=== PATIENT | male | born 1940 | race Caucasian/White ===

== ENCOUNTER → 2018-09-02 | Day surgery (SDC) | payer MEDICARE, BC ==
[~2018-09-02] VITALS: Ht 172.7 cm; Wt 86.2 kg
[~2018-09-02] MED LIST: LIDOCAINE JELLY 2% 6 ML SYRINGE ONE; MEPERIDINE (DEMEROL) INJ 50 MG/ML IVP ONE; MIDAZOLAM 2 MG/2 ML (VERSED) VIAL ONE; ONDANSETRON 4 MG/2 ML (SDV) Z0FRAN IVP PRN; PANT40TA2 PO; PANTOPRAZOLE 40 MG (PROTONIX) VIAL IV ONE; PHENYLEPHRINE 100 MCG/ML 10 ML (ANESTHESIA) SYR ONE; SEVOFLURANE (ULTANE) 15 ML INHAL SOLN ONE; SUCCINYLCHOLINE INJ 100 MG/5 ML SYR ONE; SUCR1TAB36 PO; fentaNYL INJECTION 100 MCG/2 ML AMP IVP ONE; morphine INJ 10 MG/ML 1ML (SYR OR VIAL) IVP ONE; proPOfol 200 MG/20 ML (DIPRIVAN) VIAL IV ONE
--- NOTE | 2018-09-02 14:19 | ED GI ---
General Chief Complaint: General Problems/Pain Stated Complaint: FOOD CAUGHT IN THROAT Source of Information: Patient Exam Limitations: No Limitations History of Present Illness Date Seen by Provider: Sep 02, 2018 Time Seen by Provider: 14:17 Initial Comments To ER per private vehicle with reports of food stuck in his throat. He was eating at [employer] here in [place], eating steak. [place] it get stuck in the lower esophagus. He is now unable to swallow his own secretions Timing/Duration: 1-2 Days Severity/Quality: Moderate Radiation: No Radiation Activities at Onset: None Associated Symptoms: Denies Symptoms Allergies and Home Medications Allergies Coded Allergies: No Known Drug Allergies (Unverified , 09/02/18) Home Medications Pantoprazole Sodium 40 Mg Tablet.dr, 40 MG PO DAILY Prescribed by: TOSHA FOX on 09/02/181612 Sucralfate 1 Gm Tablet, [address] in small amount of water and crush into a slurry, then take. Prescribed by: TOSHA FOX on 09/02/181612 Patient Home Medication List Home Medication List Reviewed: Yes Review of Systems Review of Systems Constitutional: see HPI EENTM: No Symptoms Reported Respiratory: No Symptoms Reported Cardiovascular: No Symptoms Reported Gastrointestinal: See HPI Genitourinary: No Symptoms Reported Musculoskeletal: no symptoms reported Skin: no symptoms reported Psychiatric/Neurological: No Symptoms Reported Endocrine: No Symptoms Reported Past Ummfovl-Shcqya-Tbpulx Hx Patient Social History Recent Foreign Travel: No Contact w/Someone Who Travel: No Physical Exam Vital Signs Vital Signs - First Documented 09/02/18 14:17 Temp 98.0 Pulse 98 Resp 16 B/P (MAP) 125/76 (92) Pulse Ox 93 O2 Delivery Room Air Capillary Refill : Height/Weight/BMI Height: '" Weight: lbs. oz. kg; BMI Method: General Appearance: WD/WN, no apparent distress HEENT: PERRL/EOMI, normal ENT inspection Neck: non-tender, full range of motion Respiratory: no respiratory distress, no accessory muscle use Gastrointestinal: normal bowel sounds, non tender, soft Extremities: normal range of motion, non-tender Neurologic/Psychiatric: alert, normal mood/affect, oriented x 3 Skin: normal color, warm/dry Exam Comments Unable to swallow his own secretions, spitting saliva into a bag. Called Dr. Fox, would like to have anesthesia and endoscopy nurse called in. Progress/Results/Core Measures Results/Orders My Orders Orders - KARLEY GORDON APRN Iv Heplock-Insert (Order) (09/02/18 14:19) Fentanyl Injection (Sublimaze Injection (09/02/18 14:30) Medications Given in ED Current Medications Medications Dose Ordered Sig/Brandt Route Start Time Stop Time Status Last Admin Dose Admin Fentanyl Citrate 50 mcg ONCE ONCE IVP 09/02/18 14:30 09/02/18 14:31 DC 09/02/18 14:26 50 MCG Vital Signs/I&O 09/02/18 14:17 Temp 98.0 Pulse 98 Resp 16 B/P (MAP) 125/76 (92) Pulse Ox 93 O2 Delivery Room Air Departure Impression Primary Impression: Food impaction of esophagus Qualified Codes: T18.128A - Food in esophagus causing other injury, initial encounter Disposition: HOME, SELF-CARE Condition: Stable Departure-Patient Inst. Decision time for Depature: 16:35 Referrals: TOSHA FOX DO NO,LOCAL PHYSICIAN (PCP) Primary Care Physician Patient Instructions: NO INSTRUCTIONS GIVEN Add. Discharge Instructions: follow-up with Dr. Fox in 2 weeks. Clear liquids only for 3 days All discharge instructions reviewed with patient and/or family. Voiced understanding. Scripts Sucralfate (Carafate) 1 Gm Tablet 1 GM PO QID, #[address] in small amount of water and crush into a slurry, then take. Prov: TOSHA FOX DO 09/02/18 Pantoprazole Sodium (Protonix) 40 Mg Tablet. 40 MG PO DAILY, #30 TAB 3 Refills Prov: TOSHA FOX DO 09/02/18 KARLEY GORDON APRN Sep 02, 2018 14:19
--- NOTE | 2018-09-02 14:30 | NUR ---
DR NIEVES IN TALKING TO PT.
--- NOTE | 2018-09-02 14:52 | NUR ---
BRONSON KAHN FROM OR HERE TO TAKE PT TO OR FOR EGD. PLANS ARE FOR PT TO COME BACK TO THE ER.
[2018-09-02] MEDS: LACTATED RINGERS 1,000 ML IV SCH ×2 (15:09→16:00)
--- NOTE | 2018-09-02 15:24 | Consultation ---
History of Present Illness History of Present Illness Patient Consulted On(mindy/time) 09/02/18 15:23 Date Seen by Provider: Sep 02, 2018 Time Seen by Provider: 14:47 History of Present Illness seen and evaluated in ed consult requested by rex mccarty for esophageal obstruction. Patient is a 78 year old male who was eating a steak about an hr ago and felt it get lodged in distal esophagus. Can't get it to go down. Can not swallow secretions having to spit in a bag. Small amount of blood mixed in with secretions . Has had issues with this before but has always gone down. Has never had an EGD to evaluate. Nothing making better, nothing making worse. Patient has no other complaints at this time. Not having any significant abdominal pain. Denies fever sweats chills shortness of breath or chest pain. Allergies and Home Medications Allergies Coded Allergies: No Known Drug Allergies (Unverified , 09/02/18) Home Medications Pantoprazole Sodium 40 Mg Tablet.dr, 40 MG PO DAILY Prescribed by: TOSHA NIEVES on 09/02/18 1613 Sucralfate 1 Gm Tablet, [address] in small amount of water and crush into a slurry, then take. Prescribed by: TOSHA NIEVES on 09/02/18 161 Patient Home Medication List Home Medication List Reviewed: Yes Past Qisphqk-Rkmzrr-Wvzxne Hx Patient Social History Alcohol Use: Denies Use Recreational Drug Use: No Smoking Status: Never a Smoker Recent Foreign Travel: No Contact w/Someone Who Travel: No Recent Infectious Disease Expo: No Recent Hopitalizations: No Surgeries History of Surgeries: Yes Surgeries: Eye Surgery, Orthopedic Respiratory History of Respiratory Disorde: No Cardiovascular History of Cardiac Disorders: No Neurological History of Neurological Disord: No Genitourinary History of Genitourinary Disor: No Gastrointestinal History of Gastrointestinal Di: No Musculoskeletal History of Musculoskeletal Dis: No Endocrine History of Endocrine Disorders: No HEENT History of HEENT Disorders: No Cancer History of Cancer: No Psychosocial History of Psychiatric Problem: No Integumentary History of Skin or Integumenta: No Family Medical History Significant Family History: No Pertinent Family Hx Review of Systems-General Constitutional: no symptoms reported EENTM: see HPI Respiratory: no symptoms reported Cardiovascular: no symptoms reported Gastrointestinal: see HPI Genitourinary: no symptoms reported Musculoskeletal: no symptoms reported Skin: no symptoms reported Psychiatric/Neurological: No Symptoms Reported Physical Exam-General Problems Physical Exam Vital Signs Vital Signs - First Documented 09/02/18 14:17 Temp 98.0 Pulse 98 Resp 16 B/P (MAP) 125/76 (92) Pulse Ox 93 O2 Delivery Room Air Capillary Refill : Less Than 3 Seconds General Appearance: no apparent distress HEENT: PERRL/EOMI, normal ENT inspection, other (sputum blood tinged) Neck: non-tender, full range of motion, supple, normal inspection Respiratory: chest non-tender, no respiratory distress, no accessory muscle use Cardiovascular: regular rate, rhythm Gastrointestinal: non tender, soft, no organomegaly Rectal: deferred Back: normal inspection, no CVA tenderness Extremities: non-tender, normal inspection Neurologic/Psychiatric: die assembler II-XII nml as tested, no motor/sensory deficits, alert, normal mood/affect, oriented x 3 Skin: normal color, warm/dry Lymphatic: no adenopathy Assessment/Plan Assessment/Plan Assessment/Plan esophageal obstruction food bolus discussed risks and benefits of egd he understands and wishes to proceed to OR for EGD TOSHA NIEVES DO Sep 02, 2018 15:24
--- NOTE | 2018-09-02 16:15 | Discharge Inst-Simple/Standard ---
Discharge Inst-Standard Discharge Medications New, Converted or Re-Newed RX: RX on Chart Patient Instructions/Follow Up Plan of Care/Instructions/FU: [address] Fox. Call to make an appointment [phone] Activity as Tolerated: Yes Discharge Diet: Liquid Diet (stay on clear liquid diet for 3 days. then eat soft food till follow up appointment (avoid meats or any foods difficult to swallow).) TOSHA FOX DO Sep 02, 2018 16:15
[2018-09-02 17:15] VITALS: BP 123/74
--- NOTE | 2018-09-02 17:15 | NUR ---
BACK FROM ENDO. PT ALERT ET STATES HE IS JUST A LITTLE SORE. WATER GIVEN AND ASKED TO TAKE SLOW SIPS.
--- NOTE | 2018-09-02 17:15 | Progress Note-Post Operative ---
Post-Operative Progess Note Surgeon (s)/Seaming Inspector (s) Surgeon TOSHA NIEVES DO Seaming Inspector: na Pre-Operative Diagnosis esophageal obstruction Post-Operative Diagnosis food bolus esophagus, linear esophageal ulceration, schatski's ring Procedure & Operative Findings Date of Procedure 09/02/18 Procedure Performed/Findings egd c removal esophageal food bolus Anesthesia Type gen Estimated Blood Loss Estimated blood loss (mL): scant Specimens/Packing Specimens Removed na TOSHA NIEVES DO Sep 02, 2018 17:15
[2018-09-02 17:52] VITALS: BP 114/72
--- NOTE | 2018-09-03 02:27 | OPERATIVE REPORT ---
DATE OF SERVICE: 09/02/2018 PREOPERATIVE DIAGNOSIS: Esophageal obstruction. POSTOPERATIVE DIAGNOSIS: Food bolus in the esophagus, linear esophageal ulceration, Schatzki's ring. PROCEDURE: EGD with removal of esophageal food bolus. SURGEON: Tosha Fox DO. ANESTHESIA: General. ESTIMATED BLOOD LOSS: Scant. COMPLICATIONS: None. INDICATIONS: The patient is a 78-year-old male who was eating steak dinner about an hour prior to emergency room. He is unable to swallow any of his secretions and having to spit them out. He got a little bit of blood tinged color to the secretions and he has some discomfort and stuck in the lower part of the esophagus. The patient understood risks and benefits of procedure and wished to proceed with procedure. Consent was signed in the chart. PROCEDURE: The patient was taken to the operating suite. He was intubated, placed in the supine position. Timeout was performed. Scope was inserted in the mouth and into the esophagus, which demonstrated a significant amount of secretions mixed with some slight amount of bleeding. There is some small amount of blood. This was suctioned. A large food bolus was present towards the distal portion of the esophagus. Using a [employer] and prong grasper the food bolus was able to be removed in multiple pieces until completely cleared. A linear ulceration was present where the food bolus was stuck with a very scant amount of bleeding, also small Schatzki's ring. The beginning of the Schatzki's ring is present in the distal esophagus. Scope was inserted in the stomach. Large amount of food particulate into the stomach and towards the antrum. The scope was continued to be advanced through the pylorus into the duodenum, which did not visualize any polyps, mass or ulcerations. The scope was slowly retracted back into the stomach where it was further insufflated noting no other pathology except for the food particulate was noted in the stomach. Scope was retroflexed, difficult visualization because of the coloration, but no other pathology noted. Scope was returned to its normal position, slowly withdrawn to the distal esophagus with beginnings of a Schatzki's ring present. A linear ulceration present. Scope was continued to slowly retracted back to completely removed. The patient was taken to the recovery room in stable condition. RECOMMENDATIONS: The patient will be started on Protonix and Carafate. The patient will follow up in the office in 2 weeks. We recommend repeating EGD in 6 weeks for reevaluation. Also recommend staying on clear liquid diet for 3 days evidence advanced to a soft easily digestible diet, avoiding eating meat or difficult food digest until seen in the office. Job ID: [id number] DocumentID: [id number] Dictated Date: 09/02/2018 17:20:01 Predatory Animal Trapper Date: 09/03/2018 02:26:53 Dictated By: TOSHA FOX DO
--- NOTE | 2018-09-03 09:38 | Anesthesia-General Post-Op ---
General Patient Condition Mental Status/LOC: Same as Preop Cardiovascular: Satisfactory Nausea/Vomiting: Absent Respiratory: Satisfactory Pain: Controlled Complications: Absent Post Op Complications Complications None Follow Up Care/Instructions Patient Instructions None needed. Anesthesia/Patient Condition Patient Condition Patient is doing well, no complaints, stable vital signs, no apparent adverse anesthesia problems. No complications reported per nursing. MY BRAVO CRNA Sep 03, 2018 09:38
== END | disposition home or self-care (01) ==
LOC: ER 14:00 → ENDO 14:51
PROVIDERS: ATTEND Surgery
DX: T18.128A Food in esophagus causing other injury, initial encounter (principal); K22.10 Ulcer of esophagus without bleeding; K22.2 Esophageal obstruction; Y92.511 Restaurant or cafe as the place of occurrence of the external cause
CPT/HCPCS: 96374; 96375

== ENCOUNTER 2018-11-16 10:30 | Outpatient (CLI) | payer MEDICARE, BC ==
[~2018-11-16] VITALS: Ht 172.7 cm; Wt 86.2 kg
[~2018-11-16 10:30] MED LIST changes: +ASPI-586 PO; -LIDOCAINE JELLY 2% 6 ML SYRINGE ONE; -MEPERIDINE (DEMEROL) INJ 50 MG/ML IVP ONE; -MIDAZOLAM 2 MG/2 ML (VERSED) VIAL ONE; -ONDANSETRON 4 MG/2 ML (SDV) Z0FRAN IVP PRN; -PANTOPRAZOLE 40 MG (PROTONIX) VIAL IV ONE; -PHENYLEPHRINE 100 MCG/ML 10 ML (ANESTHESIA) SYR ONE; -SEVOFLURANE (ULTANE) 15 ML INHAL SOLN ONE; -SUCCINYLCHOLINE INJ 100 MG/5 ML SYR ONE; +VITA400T7 PO; -fentaNYL INJECTION 100 MCG/2 ML AMP IVP ONE; -morphine INJ 10 MG/ML 1ML (SYR OR VIAL) IVP ONE; -proPOfol 200 MG/20 ML (DIPRIVAN) VIAL IV ONE
== END 2018-11-16 11:03 | disposition home or self-care (01) ==
LOC: PREOP 10:30
PROVIDERS: ATTEND Surgery
DX: Z01.818 Encounter for other preprocedural examination (principal)

== ENCOUNTER 2018-11-20 09:06 | Day surgery (SDC) | payer MEDICARE, BC ==
[~2018-11-20] VITALS: Ht 172.7 cm; Wt 86.2 kg
[2018-11-20 09:15] VITALS: BP 126/83
[2018-11-20] MEDS ORDERED: LACTATED RINGERS 1,000 ML IV STA (09:26)
--- NOTE | 2018-11-20 09:27 | Progress Note-Pre Operative ---
Pre-Operative Progress Note H&P Reviewed The H&P was reviewed, patient examined and no changes noted. Date Seen by Provider: Nov 20, 2018 Time Seen by Provider: : Date H&P Reviewed: Nov 20, 2018 Time H&P Reviewed: : Pre-Operative Diagnosis: gerd, history of food bolus TOSHA NIEVES DO Nov 20, 2018 09:27
[2018-11-20] MEDS ORDERED: HURRICAINE EXT TUBE (BENZOCAINE) XX PRN (09:30)
--- OUTSIDE RECORDS SUMMARY | 2018-11-20 10:24 | XMS REPORT | Continuity of Care Document ---
Author Organization Unknown Address Unknown Allergies Active Description Code Type Severity Reaction Onset Reported/Identified Relationship to Patient Clinical Status Yes No Known Drug Allergies [id number] Drug Allergy Unknown N/A 11/16/2018 Medications There is no data. Problems Date Dx Coded Attending Type Code Diagnosis Diagnosed By 09/04/2018 TOSHA NIEVES DO D Ot K22.10 ULCER OF ESOPHAGUS WITHOUT BLEEDING 09/04/2018 NIEVES DO, TOSHA D Ot K22.2 ESOPHAGEAL OBSTRUCTION 09/04/2018 NIEVES DO, TOSHA D Ot T18.128A FOOD IN ESOPHAGUS CAUSING OTHER INJURY, 09/04/2018 NIEVES DO, TOSHA D Ot Y92.[address] 09/05/2018 NIEVES DO, TOSHA D Ot K22.10 ULCER OF ESOPHAGUS WITHOUT BLEEDING 09/05/2018 NIEVES DO, TOSHA D Ot K22.2 ESOPHAGEAL OBSTRUCTION 09/05/2018 NIEVES DO, TOSHA D Ot T18.128A FOOD IN ESOPHAGUS CAUSING OTHER INJURY, 09/05/2018 NIEVES DO, TOSHA D Ot Y92.[address] 09/24/2018 NIEVES DO, TOSHA D Ot K22.10 ULCER OF ESOPHAGUS WITHOUT BLEEDING 09/24/2018 NIEVES DO, TOSHA D Ot K22.2 ESOPHAGEAL OBSTRUCTION 09/24/2018 NIEVES DO, TOSHA D Ot T18.128A FOOD IN ESOPHAGUS CAUSING OTHER INJURY, 09/24/2018 NIEVES DO, TOSHA D Ot Y92.[address] 11/14/2018 NIVEES DO, TOSHA D Ot Z01.818 ENCOUNTER FOR OTHER PREPROCEDURAL EXAMIN 11/16/2018 NIEVES DO TOSHA D Ot Z01.818 ENCOUNTER FOR OTHER PREPROCEDURAL EXAMIN Procedures There is no data. Results There is no data. Encounters ACCT No. Visit Date/Time Discharge Status Pt. Type Provider Facility Loc./Unit Complaint [id number] 11/16/2018 10:30:00 11/16/2018 11:03:00 DIS Outpatient TOSHA NIEVES DO [facility] PREOP EGD [id number] 09/02/2018 14:51:00 09/02/2018 23:59:59 CLS Outpatient TOSHA NIEVES DO [facility] ENDO FOOD BOLLUS [id number] 11/20/2018 11:00:00 PEN Preadmit TOSHA NIEVES DO [facility] ENDO GERD
[2018-11-20] MEDS ORDERED: proPOfol 200 MG/20 ML (DIPRIVAN) VIAL IV ONE (10:34)
[2018-11-20] MEDS ORDERED: MIDAZOLAM 2 MG/2 ML (VERSED) VIAL ONE (10:34)
[2018-11-20] MEDS ORDERED: HURRICAINE EXT TUBE (BENZOCAINE) ONE (10:52)
[2018-11-20] MEDS ORDERED: PANT40TA2 PO (11:09)
--- NOTE | 2018-11-20 11:09 | Progress Note-Post Operative ---
Post-Operative Progess Note Surgeon (s)/Zipper Joiner (s) Surgeon TOSHA NIEVES DO Zipper Joiner: na Pre-Operative Diagnosis gerd, history of food bolus Post-Operative Diagnosis gastritis, hiatal hernia Procedure & Operative Findings Date of Procedure 11/20/18 Procedure Performed/Findings egd c biopsies Anesthesia Type per boom stick man Estimated Blood Loss Estimated blood loss (mL): none Specimens/Packing Specimens Removed antrum, body, ge TOSHA NIEVES DO Nov 20, 2018 11:09
--- NOTE | 2018-11-20 11:12 | Discharge Inst-Simple/Standard ---
Discharge Inst-Standard Discharge Medications New, Converted or Re-Newed RX: Transmitted to Pharmacy Patient Instructions/Follow Up Plan of Care/Instructions/FU: 2 weeks Dominique Activity as Tolerated: Yes Discharge Diet: Regular Diet TOSHA NIEVES DO Nov 20, 2018 11:12
[2018-11-20 11:20] VITALS: BP 138/89
--- NOTE | 2018-11-20 11:49 | Anesthesia-General Post-Op ---
MAC Patient Condition Mental Status/LOC: Same as Preop Cardiovascular: Satisfactory Nausea/Vomiting: Absent Respiratory: Satisfactory Pain: Controlled Complications: Absent Post Op Complications Complications None Follow Up Care/Instructions Patient Instructions None needed. Anesthesiology Discharge Order Discharge Order Patient is doing well, no complaints, stable vital signs, no apparent adverse anesthesia problems. No complications reported per nursing. CARTER BARRIOS CRNA Nov 20, 2018 11:49
[2018-11-20 11:50] VITALS: BP 139/90
[2018-11-20 12:05] VITALS: BP 139/90
--- NOTE | 2018-11-20 17:40 | OPERATIVE REPORT ---
DATE OF SERVICE: 11/20/2018 PREOPERATIVE DIAGNOSIS: Gastroesophageal reflux disease, history of food bolus. POSTOPERATIVE DIAGNOSIS: Gastritis, hiatal hernia. PROCEDURE: EGD with biopsy. SURGEON: Tosha Fox DO ANESTHESIA: Per CORE DIPPER. ESTIMATED BLOOD LOSS: None. COMPLICATIONS: None. SPECIMENS: Antrum, body and GE junction. INDICATIONS: The patient is a 78-year-old male with recent esophageal food bolus that had to be dislodged. There was significant inflammation at that time and difficult to visualize. The patient understands risks and benefits of procedure and wished to proceed with procedure. Consent was signed in the chart. PROCEDURE: The patient was taken to the endoscopy suite, placed in left lateral recumbent position. Timeout was performed. Scope was inserted in mouth, down the esophagus, stomach into the duodenum without difficulty. There were no polyps, masses or ulcerations within the duodenum. Scope was slowly retracted into the stomach where it had some erythematous changes present that consistent with some slight gastritis. Biopsy of this area was obtained. Scope was retroflexed noting some small benign appearing polyps and a small hiatal hernia. There was also some inflammation in the body of stomach, which biopsy was obtained. Scope was returned to its normal position, slowly withdrawn to the distal esophagus, no polyps, masses or ulcerations. Minimal erythema. Biopsy of the GE junction was obtained. Scope was then slowly retracted back until completely removed noting no other pathology. The patient tolerated procedure well without any complications and taken to recovery room in stable condition. RECOMMENDATIONS: The patient will continue on Carafate and we will add Protonix prescription. He will follow up with the biopsies in 2 weeks. Job ID: [id number] DocumentID: [id number] Dictated Date: 11/20/2018 11:14:54 Professor Of Law Date: 11/20/2018 17:40:40 Dictated By: TOSHA FOX DO
== END 2018-11-20 12:05 | disposition home or self-care (01) ==
LOC: ENDO 09:06
PROVIDERS: ATTEND Surgery
DX: K29.50 Unspecified chronic gastritis without bleeding (principal); K44.9 Diaphragmatic hernia without obstruction or gangrene; K21.9 Gastro-esophageal reflux disease without esophagitis; Z79.899 Other long term (current) drug therapy; Z79.82 Long term (current) use of aspirin